=== PATIENT | male | born 1960 | race Caucasian/White ===

== ENCOUNTER → 2017-10-30 | Outpatient (CLI) | payer OTHER ==
[~2017-10-30] MED LIST: ADVIL200 MG PO; AVAPRO300 MG PO; CRESTOR10 MG PO; DEPO-TESTOS200 MG/ML IM; DIOVAN320 MG PO; FORTAMET500 M1 PO; HYDROCODON-ACE1 EAC7 PO; LANSOPRAZOLE30 MG PO; LEXAPRO10 MG PO; LIPITOR40 MG PO; LO-DOSE ASPIRIN81 M1 PO; LOSARTAN POTAS100 MG PO; METAXALONE800 MG PO; METFORMIN HCL500 MG PO; NEILMED SINUS1 EAC1 NS; OCEAN NASAL 0.645 ML BOTH NARES; OXAYDO5 MG PO; OXYCONTIN30 MG PO; PERCOCET 5/31 TABLET PO; PREDNISONE10 MG PO; PREVACID15 MG PO; REMERON15 M2 PO; TESTOSTERONE IM; VITAMIN D31000 UNI2 PO; VITAMIN D400 INTUNI PO; Vicodin,Lortab 5/500 PO
== END | disposition home or self-care (01) ==
LOC: CDC 13:14
DX: Z01.810 Encounter for preprocedural cardiovascular examination (principal); M54.16 Radiculopathy, lumbar region
CPT/HCPCS: 93000

== ENCOUNTER 2017-11-12 11:58 | Day surgery (SDC) | payer OTHER ==
[~2017-11-12] VITALS: Ht 180.3 cm; Wt 93.1 kg
[~2017-11-12 11:58] MED LIST changes: +ENDOCET 5-3251 EACH PO; +LEXAPRO20 MG PO; -PREVACID15 MG PO; +PREVACID30 MG PO
[2017-11-12 12:41] VITALS: BP 110/74
[2017-11-12 18:50] VITALS: BP 119/76
[2017-11-12 19:50] VITALS: BP 115/70
[2017-11-12 20:35] VITALS: BP 128/75
== END 2017-11-12 20:44 | disposition home or self-care (01) ==
LOC: SDC 11:58
DX: M51.16 Intervertebral disc disorders with radiculopathy, lumbar region (principal); I10 Essential (primary) hypertension; K21.9 Gastro-esophageal reflux disease without esophagitis; E78.00 Pure hypercholesterolemia, unspecified; Z85.841 Personal history of malignant neoplasm of brain
CPT/HCPCS: 72020; 76000; J0690; J1100; J1170; J1885; J2405; J2710; J3010